=== PATIENT | female | born 1975 | race Caucasian/White ===

== ENCOUNTER 2018-03-20 10:41 | Emergency (ER) | payer MEDICARE, MEDICAID ==
[~2018-03-20] VITALS: Ht 177.8 cm; Wt 65.5 kg
[2018-03-20 11:27] LABS: BASOPHILS # (AUTO) 0.1 K/uL (0.0-8.0); BASOPHILS % (AUTO) 0.9 % (0.0-2.0); EOSINOPHILS # (AUTO) 0.1 K/uL (0.0-0.7); EOSINOPHILS % (AUTO) 2.1 % (0.0-7.0); HEMATOCRIT 37.8 % (31.2-41.9); LYMPHOCYTES # (AUTO) 2.4 K/uL (20.0-40.0); MEAN CORPUSCULAR HEMOGLOBIN 33.6 uug (24.7-32.8); MEAN CORPUSCULAR HGB CONC 35 g/dL (32.3-35.6); MEAN CORPUSCULAR VOLUME 97.4 fL (75.5-95.3); MONOCYTES # (AUTO) 0.7 K/uL (2.0-10.0); MONOCYTES % (AUTO) 10.8 % (0.0-11.0); NEUTROPHILS # (AUTO) 3.3 K/uL (1.8-8.9); NEUTROPHILS % (AUTO) 50.2 % (38.5-71.5); PLATELET COUNT (AUTO) 309 K/uL (179-408); RED BLOOD CELL COUNT(AUTO) 3.88 MIL/uL (3.63-4.92); WHITE BLOOD COUNT (AUTO) 6.6 K/uL (3.8-11.8)
[2018-03-20 12:23] VITALS: BP 122/76
--- NOTE | 2018-03-20 12:23 | NUR ---
Patient discharged to home in stable conditon. Written and verbal after care instructions given. Patient verbalizes understanding of instructions.
== END 2018-03-20 12:24 | disposition home or self-care (01) ==
LOC: ER 10:41
DX: N93.8 Other specified abnormal uterine and vaginal bleeding (principal); I50.9 Heart failure, unspecified
CPT/HCPCS: 36415; 84703; 85025; 87536; A4663